=== PATIENT | male | born 1990 | race Caucasian/White ===

== ENCOUNTER 2016-11-23 17:47 | Emergency (ER) ==
[2016-11-23 18:02] VITALS: BP 150/82; TEMP 99.3; BMI 26.1
--- NOTE | 2016-11-23 18:09 | ED.PDOC ---
General ED Provider: Dr. JUAN LAM JR Chief Complaint: Extremity Pain/Injury Stated Complaint: Pain from left shoulder to left elbow. No acute injury. Does a lot of lifting at work. Able to lift shoulder. [ End ]99.3 71 20 98 150/82 5/ 10 Time Seen by Physician: 18:09 Mode of Arrival: Walk-In Information Source: Patient Exam Limitations: No limitations Nursing and Triage Documentation Reviewed and Agree: No Review of Systems - Review Of Systems Constitutional: Reports: No symptoms Eyes: Reports: No symptoms Ears, Nose, Mouth, Throat: Reports: No symptoms Respiratory: Reports: No symptoms Cardiac: Reports: No symptoms GI: Reports: No symptoms : Reports: No symptoms Musculoskeletal: Reports: Muscle pain, Other Skin: Reports: No symptoms Neurological: Reports: No symptoms Endocrine: Reports: No symptoms Hematologic/Lymphatic: Reports: No symptoms All Other Systems: Other Past Medical History - Past Medical History Previously Healthy: Yes Endocrine: Reports: None Cardiovascular: Reports: None Respiratory: Reports: None Hematological: Reports: None Gastrointestinal: Reports: None Genitourinary: Reports: None Neuro/Psych: Reports: None Musculoskeletal: Reports: None Cancer: Reports: None - Surgical History General Surgical History: Reports: Other (PE tubes as child) - Family History Family History: Reports: Unknown - Social History Smoking Status: Former smoker Hx Substance Use: No Alcohol Screening: Occasionally Physical Exam - Physical Exam Appearance: Well-appearing Pain Distress: Moderate Neck: Supple Respiratory: Airway patent Musculoskeletal: Normal strength, ROM intact, No edema, No calf tenderness ( pain left biceps without tenderness no weakness on strength testing`) Skin: Warm, Dry, Normal color Neurological: Sensation intact, Motor intact, Reflexes intact, Cranial nerves intact, Alert, Oriented Psychiatric: Affect appropriate, Mood appropriate Critical Care Note - Critical Care Note Total Time (mins): 0 Course - Course Vital Signs: Temp Pulse Resp BP Pulse Ox 11/23/16 17:48 99.3 F 71 20 150/82 H 98 Departure - Departure Time of Disposition: 18:25 Disposition: HOME SELF-CARE Discharge Problem: Injury of upper extremity, Strain of biceps muscle Instructions: Muscle Strain (ED), Musculoskeletal Pain (ED) Condition: Good Pt referred to PMD for follow-up: Yes Additional Instructions: limit lifting for three days range of motion twice a day for elbow range of motion twice a day for shoulder may use ice for swelling Naprosyn for pain (take with food) Prescriptions: Naproxen [Naprosyn] 500 mg PO Q12HR PRN #30 tablet PRN Reason: PAIN Allergies/Adverse Reactions: Allergies No Known Allergies Allergy (Unverified 11/23/16 17:58) Home Medications: Ambulatory Orders Naproxen [Naprosyn] 500 mg PO Q12HR PRN #30 tablet 11/23/16
== END 2016-11-23 18:54 | disposition home or self-care (01) ==
LOC: ED 17:47
DX: S46.212A Strain of muscle, fascia and tendon of other parts of biceps, left arm, initial encounter (principal); X50.9XXA Other and unspecified overexertion or strenuous movements or postures, initial encounter
CPT/HCPCS: 99282

== ENCOUNTER 2017-09-18 07:07 | Emergency (ER) ==
[2017-09-18 07:13] VITALS: BP 142/90; TEMP 97.9; BMI 27.2
--- NOTE | 2017-09-18 07:19 | ED.PDOC ---
General ED Provider: Dr. AMANDEEP DE LA GARZA Chief Complaint: Sore Throat Stated Complaint: Sore throat; L ear ache Time Seen by Physician: 07:19 Mode of Arrival: Walk-In Information Source: Patient Nursing and Triage Documentation Reviewed and Agree: Yes EENT Complaint Exam - Throat Complaint/Exam Onset/Duration: 3 days Symptoms Are: Still present (Tong[employer] made him come in to get checked out; works around food) Timimg: Constant Initial Severity: Mild Current Severity: Moderate Aggravating: Reports: Eating Alleviating: Reports: None, OTC Meds (Theraful helped out a little last night) Associated Signs and Symptoms: Reports: Cough (occasional), Decreased activity Uvula Midline: Yes Natasha-tonsillar Fluctuence: No Scarlatinaform Rash Present: No Vesicles: Absent: Lip, Gums, Tongue, Buccal Mucosa, Pharynx Stridor Present: No Sinus Tenderness Present: No Tonsillar Hypertrophy Present: No Review of Systems - Review Of Systems Constitutional: Reports: Malaise (Very mild; feels a little more tired than usual; works nights) Ears, Nose, Mouth, Throat: Reports: Ear pain (Left), Throat pain Respiratory: Reports: Cough (Occasional; non productive) All Other Systems: Reviewed and Negative Past Medical History - Past Medical History Previously Healthy: Yes Endocrine: Reports: None Cardiovascular: Reports: None Respiratory: Reports: None Hematological: Reports: None Gastrointestinal: Reports: None Genitourinary: Reports: None Neuro/Psych: Reports: None Musculoskeletal: Reports: None Cancer: Reports: None - Surgical History General Surgical History: Reports: Other (PE tubes as child) - Family History Family History: Reports: Unknown - Social History Smoking Status: Former smoker Hx Substance Use: No Alcohol Screening: None - Immunizations Tetanus Shot up to Date: No Physical Exam - Physical Exam Appearance: Well-appearing Eyes: SYL, EOMI, Conjunctiva clear ENT: Ears normal (L ear mild TM erythema) Neck: Supple (No anterior cervical lymphadeonpathy) Respiratory: Airway patent, Breath sounds clear, Breath sounds equal Cardiovascular: RRR, Pulses normal Skin: Warm, Dry, Normal color Neurological: Sensation intact, Motor intact, Reflexes intact Psychiatric: Affect appropriate, Mood appropriate Critical Care Note - Critical Care Note Total Time (mins): 10 Course - Course Orders, Labs, Meds: Rapid strep reported negative. Vital Signs: Temp Pulse Resp BP Pulse Ox 11/21/17 07:08 97.9 F 73 16 142/90 H 97 Departure - Departure Time of Disposition: 07:58 Disposition: HOME SELF-CARE Discharge Problem: Pharyngitis Instructions: Pharyngitis (ED) Condition: Good Pt referred to PMD for follow-up: Yes Additional Instructions: Take antibiotic as prescribed; expect a call if the Strep Culture comes back as a positive tomorrow. If it is positive you should be off work for three days. Otherwise you should be off work at least one day. Follow up as needeed with primary care provider. Prescriptions: Azithromycin [Zithromax Tri-Moses] 500 mg PO DAILY #3 tablet Allergies/Adverse Reactions: Allergies No Known Allergies Allergy (Unverified 11/23/16 17:58) Home Medications: Ambulatory Orders Azithromycin [Zithromax Tri-Moses] 500 mg PO DAILY #3 tablet 09/18/17 Disposition Discussed With: Patient
== END 2017-09-18 08:12 | disposition home or self-care (01) ==
LOC: ED 07:07
DX: J02.9 Acute pharyngitis, unspecified (principal); H92.02 Otalgia, left ear
CPT/HCPCS: 87651; 87880; 99282